=== PATIENT | female | born 1950 | race Caucasian/White ===

== ENCOUNTER 2024-04-26 14:20 | Inpatient (IN) | payer MEDICARE ==
[2024-04-26] VITALS (363 sets, daily range): BP systolic 143–146; BP diastolic 68–82; PULSE 82–85; TEMP 99.1–99.2; O2SAT 66–100
[~2024-04-26] VITALS: Ht 160 cm; Wt 138.2 kg
[~2024-04-26 14:20] MED LIST: ADIPEX-P37.5 MG PO; ASPIRIN E.C. 8181 MG PO; CIPRO500 MG PO; COLACE 100100 MG/CAP PO; COMPLETE MULTI1 TAB PO; DESENEX TP; ELIQUIS 5MG PO; ENDOCET PO; EUTHYROX75 MCG PO; FASTIN30 MG PO; FENTANYL 25 MCG TOP; FENTANYL 50MCG TOP; FLAGYL500 MG PO; GLUCOPHAGE XR500 M1 PO; K-DUR 10 MEQ T10 MEQ PO; K-TAB20 PO; KLOR-CON 1010 MEQ PO; LASIX 40MG TABL40 MG PO; LASIX 80MG TABL80 MG PO; LIPITOR 80MG80 MG PO; MULTIPLE VITAMI1 TA7 PO; NATURE'S BLE1000 MCG PO; NITROSTAT0.4 MG/TAB SL; NORCO 325 MG-51 TAB PO; NORCO 325 MG-7.1 TAB PO; OXYCONTIN 20MG20 MG PO; PERCOCET 325 MG1 TAB PO; PRADAXA 150MG150 MG PO; PRINZIDE 12.5 M1 TA1 PO; PROZAC40 MG PO; PYRIDIUM 100MG100 MG PO; PYRIDIUM200 M1 PO; SYNTHROID0.1 MG/TAB PO; TOPROL XL 50MG50 MG PO; TOPROL XL100 MG PO; TOVIAZ8 MG PO; VERAPAMIL240 MG/TAB PO; VERELAN PM200 MG PO; VERELAN240 MG PO; VITAMIN D31000 I1 PO; ZYLOPRIM 100MG100 MG PO; ZYLOPRIM 300MG300 MG PO
[2024-04-26 14:30] LABS: ARTERIAL BLD GAS O2 SATURATION 97.7 % (92-100); ARTERIAL BLD GAS TCO2 CT 30.3; ARTERIAL BLOOD GAS BASE EXCESS -1.1 (-2-2); ARTERIAL BLOOD GAS HCO3 28.1 meq/L (22-26); ARTERIAL BLOOD GAS PO2 111.5 mmHg (80-100); ARTERIAL BLOOD GAS pH 7.22 (7.35-7.45)
[2024-04-26] MEDS ORDERED: Ondansetron 4 MG/2 ML VIAL IV PRN (14:30)
[2024-04-26] MEDS ORDERED: Acetaminophen 500 MG TAB PO PRN (14:30)
[2024-04-26] MEDS ORDERED: Naloxone 0.4 MG/ML VIAL IV PRN (15:00)
[2024-04-26] MEDS ORDERED: Albuterol 0.083% Neb Soln 2.5 MG/3 ML UD IH PRN (15:00)
[2024-04-26] MEDS ORDERED: fentaNYL 100 ML IV SCH (15:00)
[2024-04-26] MEDS ORDERED: methylPREDNISolone Sod Succ 125 MG/2 ML VIAL IV ONE (15:00)
[2024-04-26] MEDS ORDERED: Rocuronium 50 MG/5 ML Multi-Dose VIAL IV ONE (15:23)
[2024-04-26] MEDS ORDERED: fentaNYL 50 MCG/ML 2 ML VIAL IV ONE (15:27)
[2024-04-26 16:18] LABS: ARTERIAL BLD GAS TCO2 CT 26.5; ARTERIAL BLOOD GAS BASE EXCESS 0.6 (-2-2); ARTERIAL BLOOD GAS HCO3 25.3 meq/L (22-26); ARTERIAL BLOOD GAS PCO2 40.7 mmHg (35-45); ARTERIAL BLOOD GAS pH 7.41 (7.35-7.45)
[2024-04-26 16:19] LABS: ARTERIAL BLOOD GAS PO2 165.2 mmHg (80-100)
[2024-04-26 16:35] LABS: BASO % 0.3 % (0.0-2.0); EOS # 0.1 K/mm3 (0.0-0.7); EOS % 0.5 % (0.0-4.0); GRAN # 8.7 K/mm3 (1.4-6.5); GRAN % 85.4 % (42.2-75.2); HEMATOCRIT 36.5 % (37.0-47.0); HEMOGLOBIN 11.2 g/dl (12.5-16.0); LYMPH # 0.8 K/mm3 (1.2-3.4); LYMPH % 7.7 % (20.0-51.0); MEAN CELL VOLUME 99 fl (80.0-100.0); MEAN CORPUSCULAR HEMOGLOBIN 30 pg (27-31); MEAN CORPUSCULAR HGB CONC 31 g/dl (33.0-37.0); MONO # 0.5 K/mm3 (0.1-0.6); MONO % 5.2 % (1.7-9.3); PLATELET COUNT 177 K/mm3 (130-400); RED BLOOD COUNT 3.68 M/mm3 (4.10-5.30); REDCELL DISTRIBUTION WIDTH-CV 15.5 % (11.5-14.5)
[2024-04-26 16:57] LABS: ALBUMIN 2.6 g/dL (3.4-4.8); BILIRUBIN,TOTAL 0.5 mg/dL (0.2-1.2); CALCIUM 8.8 mg/dL (8.4-10.2); CREATININE, serum 1.15 mg/dL (0.57-1.11); MAGNESIUM 1.7 mg/dL (1.6-2.6); POTASSIUM 4.1 mEq/L (3.5-4.5); TOTAL PROTEIN 6.2 g/dl (6.2-8.1)
--- NOTE | 2024-04-26 17:23 | NUR ---
Pt recently intubated- not doing sedation vacation
--- NOTE | 2024-04-26 17:24 | NUR ---
Pt arrived via EMS to room ICU 8 at 1414. Pt transferred to bed and attached to critical care monitors. Pt arrived on bipap and is very lethargic. Will open eyes and follow commands but quickly falls back asleep. Dr. Handley notified of arrival and pt condition. Upon arrival ABG ordered and then orders to proceed with intubation. This RN called pt son, Eder who lives in [place] for consent for central line, intubation and ART line. Updated on POC and questioned answered. Rafael Perera CRNA arrived for intubation. Pt intubated with 7.5 tube placed 23 at the lip and verified by color change at 1500. ART line placed to R radial by Rafael Perera CRNA. Pt tolerated procedure without difficulty. Pt has multiple wounds over body. Several wounds in labia area. Pt arrived with domínguez in place. Pt has several ulcers over BLE and skin tear to left forearm. Pictures taken.
[2024-04-26] MEDS ORDERED: cefTRIAXone 1 G in Water For Injection,Sterile 10 ML IV SCH (18:15)
[2024-04-26] MEDS ORDERED: Furosemide 40 MG/4 ML VIAL IV ONE (18:15)
--- NOTE | 2024-04-26 19:30 | NUR ---
Pt had multple rings on fingers. Fingers were edmatous and 9 rings were removed and placed in plastic cup and placed at bedside. One gold earring hope also removed.
[2024-04-26] MEDS ORDERED: LASIX 40MG TABL40 MG PO (19:34)
[2024-04-26] MEDS ORDERED: VERAPAMIL120 MG/TA1 PO (19:36)
[2024-04-26] MEDS ORDERED: DITROPAN XL10 MG PO (19:37)
[2024-04-26] MEDS ORDERED: K-DUR20 MEQ PO (19:43)
--- NOTE | 2024-04-26 19:59 | NUR ---
Patient intubated and sedated at time admission intake is completed. Unable to determine patient's vaccination status. Unable to complete suicide risk assessment at this time. Med rec completed using patient's transfer paperwork from [place]. Unable to verify patient's preferred pharmacy.
[2024-04-26] MEDS ORDERED: Albuterol 0.083% Neb Soln 2.5 MG/3 ML UD IH SCH (20:00)
[2024-04-26] MEDS ORDERED: methylPREDNISolone Sod Succ 125 MG/2 ML VIAL IV SCH (21:00)
[2024-04-26] MEDS ORDERED: Apixaban 5 MG TABLET PO SCH (21:00)
--- NOTE | 2024-04-26 21:07 | NUR ---
FIO2 REDUCED FROM 40% TO 30%.
--- NOTE | 2024-04-26 23:56 | NUR ---
PT LAYING IN BED ON VENT UPON ENTERING. PT RESPONDING TO PAINFUL STIMULI AND UNABLE TO ANSWER ORIENTATION QUESTIONS. RIGHT IJ AND LEFT AC INT IN PLACE. RIGHT RADIAL ART LINE ZEROED, SUTURED WITH DRIED BLOOD NOTED TO DRESSING. NO PATENT. LEFT FOREARM SKIN TEAR, MEPILEX IN PLACE. BUE ECCYMOSIS NOTED. 2 ULCERS TO LLE SAHARA AND 2 SCABS NOTED BELOW LEFT KNEE. BLE FLAKY SKIN. RLE SCATTERED SCABS. SACRUM REDDENED, SKIN BLANCHABLE AND INTACT. BED IN LOWEST POSITION, CALL LIGHT IN REACH, BED ALARM ON.
[2024-04-27] VITALS (759 sets, daily range): BP systolic 82–145; BP diastolic 44–71; PULSE 57–98; TEMP 97.2–98.1; O2SAT 54–100
[2024-04-27 05:14] LABS: ARTERIAL BLD GAS O2 SATURATION 97.5 % (92-100); ARTERIAL BLD GAS TCO2 CT 21.7; ARTERIAL BLOOD GAS BASE EXCESS -2.2 (-2-2); ARTERIAL BLOOD GAS HCO3 20.8 meq/L (22-26); ARTERIAL BLOOD GAS PCO2 29.7 mmHg (35-45); ARTERIAL BLOOD GAS PO2 95.5 mmHg (80-100); ARTERIAL BLOOD GAS pH 7.46 (7.35-7.45)
--- NOTE | 2024-04-27 05:35 | NUR ---
SEDATION VACATION NOT APPROPRIATE AT THIS TIME, PT ON VENT LESS THAN 24 HOURS.
[2024-04-27 05:45] LABS: HEMOGLOBIN 10.9 g/dl (12.5-16.0); MEAN CELL VOLUME 96 fl (80.0-100.0); MEAN CORPUSCULAR HEMOGLOBIN 30 pg (27-31); MEAN CORPUSCULAR HGB CONC 31 g/dl (33.0-37.0); MEAN PLATELET VOLUME 10.4 fl (7.4-10.4); PLATELET COUNT 171 K/mm3 (130-400); RED BLOOD COUNT 3.61 M/mm3 (4.10-5.30); REDCELL DISTRIBUTION WIDTH-CV 15.2 % (11.5-14.5)
[2024-04-27 05:49] LABS: HEMATOCRIT 34.8 % (37.0-47.0)
[2024-04-27 06:04] LABS: CALCIUM 8.7 mg/dL (8.4-10.2); CREATININE, serum 1.18 mg/dL (0.57-1.11); POTASSIUM 3.3 mEq/L (3.5-4.5)
[2024-04-27 07:15] LABS: BAND 1 % (0-10); LYMPHOCYTE 3 % (20.0-51.0); NEUTROPHILS 96 % (42.0-75.2); PLATELET ESTIMATE NORMAL (NORMAL)
--- NOTE | 2024-04-27 10:02 | NUR ---
market research worker notes pt is intubated at this time. ASH received a note pt has [facility]. ASH spoke with Tereso at [facility] who reports they have had pt in the past, and she is scheduled to re-start, but she was taken to the ER. Tereso does not have a DPOA-HC. ASH spoke with pt's PCP office [facility] Kenny who reports pt sees Dr. Church. She located a DPOA-HC on file and faxed this to ASH. ASH obtained this listing Donna Gokul [phone] and Sirisha Bejarano ([facility]) [phone] as agents. ASH spoke with RN Lizeth who was informed on DPOA-HC not being pt's children as shown/listed on file. She reports Donna Mckeon is a express unit nurse and ASH corroborated this from a previous ASH note. ASH spoke with Donna Mckeon in person, in the hospital. She reports not having assisted with pt's care in many years. ASH and Donna spoke with ICU Director Radha and confirmed this was allowed. ASH provided copy of DPOA-HC to Radha. Donna confirmed pt lives alone in [place]. She sees Dr. Church for PCP needs and obtains medications from [facility] with no difficulties. Pt is believed to have Medicare Advantage [facility] plan. Donna reports pt needs assistance with ADLS and uses a FWW, wheelchair, bedside commode for DME. Donna reports pt does not often have assistance with her cares and typically sits in her chair and then transfers to the commode as her daily activity. Donna reports pt has a step-daughter, Maikel, son, Michel Hull [phone] or [phone], son Eder in [place] [phone]. Michel Carranzan is estranged from mother and Maikel does check on pt regularly. Jordan was contacted for consents prior to obtaining/locating a DPOA-HC. ASH discussed discharge proccess and steps to anticipate while pt is intubated and not able to make her own decisions. DPOA-HC placed in chart. Discharge Plan: intubated
[2024-04-27] MEDS ORDERED: Glucagon 1 MG VIAL IM PRN (10:30)
[2024-04-27] MEDS ORDERED: Dextrose (Glucose) 15 GM (4 x 3.75 GM) Chewable TABLET PACK PO PRN (10:30)
[2024-04-27] MEDS ORDERED: Dextrose 50% Water 25 GM/50 ML SYRINGE IV PRN (10:30)
--- NOTE | 2024-04-27 10:44 | NUR ---
PT IS IN THE BED ON A VENTILATOR. SHE DOES OPEN HER EYES WHEN HER NAME IS CALLED. SHE HAS A NO CATHETER IN PLACE. SHE HAS ON OG TO LIS. SHE HAS A CENTRAL LINE WITH FENTANYL AND PROPOFOL INFUSING. SHE ALSO HAS A RIGHT RADIAL ARTERIAL LINE.
[2024-04-27] MEDS ORDERED: Potassium Chloride 100 ML IV SCH ×2 (11:15→22:45)
[2024-04-27] MEDS ORDERED: *Potassium Replacement Protocol MC SCH (11:15)
--- NOTE | 2024-04-27 11:25 | NUR ---
SW was called by ASH Kenny who spoke to Dr. Church. They report pt has "Refused to come into the office." They are unsure if it is related to transportation concerns or something else. They last saw pt for her annual exam 01/2024 and feel as though many of her concerns could have been prevented. They would like assistance with pt getting established with a PCP in [place] as this is more accessible to her.
[2024-04-27] MEDS ORDERED: Insulin Lispro (HumaLOG) SQ SCH (12:00)
[2024-04-27 15:58] LABS: COLLECTION METHOD CLEAN CATCH
[2024-04-27 16:06] LABS: URINE APPEARANCE CLEAR (CLEAR/HAZY); URINE BLOOD NEGATIVE (NEGATIVE); URINE COLOR YELLOW (YELLOW); URINE GLUCOSE NEGATIVE (NEGATIVE); URINE KETONE TRACE (NEGATIVE); URINE NITRATE NEGATIVE (NEGATIVE); URINE PROTEIN(semi-quant) TRACE (NEGATIVE)
[2024-04-27] MEDS ORDERED: LR 500 ML IV ONE (16:30)
--- NOTE | 2024-04-27 21:00 | NUR ---
PT LAYING IN BED ON VENT UPON ENTERING. PT OPENING EYES TO VOICE AND UNABLE TO FOLLOW COMMANDS AT THIS TIME. NO PATENT. TUBE FEEDING AT 15 MLS/HR. RIGHT RADIAL ART LINE IN PLACE, DRIED DRAINAGE NOTED TO DRESSING. LEFT ARM SKIN TEAR, MEPILEX IN PLACE. BUE ECCHYMOSIS. 2 ULCERS TO LLE SAHARA, 2 ABRASIONS ON LEFT KNEE. BLE SCALING SKIN AND REDNESS. SCATTERED SCABS TO RLE. SACRUM REDDENED, INTACT AND BLACHABLE. SCATTERED ULCERS ON LABIA NOTED. PT HAS NO OBVIOUS NEEDS AT THIS TIME AND CALMLY RESTING IN BED. BED IN LOWEST POSITION, CALL LIGHT IN REACH, BED ALARM ON.
[2024-04-28] VITALS (351 sets, daily range): BP systolic 104–137; BP diastolic 51–67; PULSE 71–113; TEMP 97.3–99.4; O2SAT 87–100
[2024-04-28 05:32] LABS: BASO % 0.3 % (0.0-2.0); EOS # 0.1 K/mm3 (0.0-0.7); EOS % 1.1 % (0.0-4.0); GRAN # 5.9 K/mm3 (1.4-6.5); GRAN % 79.5 % (42.2-75.2); HEMOGLOBIN 10.2 g/dl (12.5-16.0); LYMPH # 0.9 K/mm3 (1.2-3.4); LYMPH % 12.4 % (20.0-51.0); MEAN CELL VOLUME 95 fl (80.0-100.0); MEAN CORPUSCULAR HEMOGLOBIN 30 pg (27-31); MEAN CORPUSCULAR HGB CONC 32 g/dl (33.0-37.0); MEAN PLATELET VOLUME 10.1 fl (7.4-10.4); MONO # 0.5 K/mm3 (0.1-0.6); MONO % 6.3 % (1.7-9.3); PLATELET COUNT 167 K/mm3 (130-400); RED BLOOD COUNT 3.38 M/mm3 (4.10-5.30); REDCELL DISTRIBUTION WIDTH-CV 15.7 % (11.5-14.5)
[2024-04-28 05:35] LABS: HEMATOCRIT 32.1 % (37.0-47.0)
[2024-04-28 05:46] LABS: CALCIUM 8.3 mg/dL (8.4-10.2); CREATININE, serum 1.33 mg/dL (0.57-1.11); MAGNESIUM 1.5 mg/dL (1.6-2.6); POTASSIUM 3.8 mEq/L (3.5-4.5)
--- NOTE | 2024-04-28 07:44 | NUR ---
SEDATION VACATION ATTEMPTED AFTER 0500, SEE DRIP TITRATIONS
--- NOTE | 2024-04-28 09:47 | NUR ---
research worker kitchen attended clinical rounding and pt remains intubated and medications have been off for few hours to rouse her. SW notes PT reccomends SNF, once able to be extubated and discuss this. Discharge Plan: SNF
[2024-04-28] MEDS ORDERED: Magnesium Sulfate 8% 50 ML IV ONE (10:30)
[2024-04-28] MEDS ORDERED: Metoprolol Tartrate 5 MG/5 ML VIAL IV ONE (11:15)
--- NOTE | 2024-04-28 15:25 | NUR ---
PT IS RESTING IN THE BED ON THE VENTILATOR. HER SEDATION HAS BEEN DECREASED FOR A SEDATION AND VENT WEANING TRIAL. SHE DOES OPEN HER EYES TO VOICE, BUT DOES NOT KEEP THEM OPEN. HER TUBE FEEDING HAS BEEN STOPPED FOR THE TRIAL. SHE HAS ON OG TUBE. SHE HAS A NO CATHETER. SHE HAS AN IJ WITH FENTANYL AND PROPOFOL INFUSING.
--- NOTE | 2024-04-28 19:48 | NUR ---
PT PROPOFOL WAS STOPPED AT 0710 AND FENTANYL STOPPED AT 0720 FOR A SEDATION VACATION AND A VENT WEANING TRIAL.
--- NOTE | 2024-04-28 20:00 | NUR ---
PT RESTING IN BED ON VENT UPON ENTERING. PT ALERT TO VOICE AND ABLE TO FOLLOW THIS NURSE WITH HER EYES. UNABLE TO SQUEEZE THIS NURSES HAND BUT ABLE TO WIGGLING TOES WHEN ASKED. PT ABLE TO ANSWER YES OR NO QUESTIONS WITH A HEAD NOD/SHAKE. PT DENIES PAIN AT THIS TIME. TUBE FEEDING IN PROGESS. NO PATENT. LEFT ARM SKIN TEAR NOTED, MEPILEX IN PLACE. BUE ECCHYMOSIS. 2 ULCERS ODD JOB WORKER TO LLE. 2 ABRASIONS ON LEFT KNEE. BLE SKIN FLAKING AND DRY. SCATTERED SCABS NOTED TO RLE. SACRUM REDDENED WITH EXORIATION NOTED, AREA DRIED ADN CLEANED. MULTIPLE VAGINAL ULCERS NOTED. REDNESS AND EXCORIATION NOTED UNDER BREASTS. BANDAID TO RIGHT WRIST FROM D/C'D ART LINE. PT DENIES NEEDS AT THIS TIME. BED IN LOWEST POSITION, CALL LIGHT IN REACH, BED ALARM ON
[2024-04-29] VITALS (243 sets, daily range): BP systolic 110–138; BP diastolic 68–92; PULSE 12–112; TEMP 98.6–99.5; O2SAT 63–100
[2024-04-29 05:12] LABS: ARTERIAL BLD GAS O2 SATURATION 97.3 % (92-100); ARTERIAL BLD GAS TCO2 CT 24.9; ARTERIAL BLOOD GAS BASE EXCESS 1.6 (-2-2); ARTERIAL BLOOD GAS PCO2 29.7 mmHg (35-45); ARTERIAL BLOOD GAS PO2 93.5 mmHg (80-100); ARTERIAL BLOOD GAS pH 7.53 (7.35-7.45)
[2024-04-29 06:00] LABS: BASO % 0.2 % (0.0-2.0); EOS # 0.2 K/mm3 (0.0-0.7); EOS % 2.5 % (0.0-4.0); GRAN # 4.4 K/mm3 (1.4-6.5); GRAN % 74.5 % (42.2-75.2); LYMPH # 0.9 K/mm3 (1.2-3.4); LYMPH % 15.4 % (20.0-51.0); MEAN CELL VOLUME 95 fl (80.0-100.0); MEAN CORPUSCULAR HGB CONC 32 g/dl (33.0-37.0); MEAN PLATELET VOLUME 10.6 fl (7.4-10.4); MONO # 0.4 K/mm3 (0.1-0.6); MONO % 7.1 % (1.7-9.3); PLATELET COUNT 155 K/mm3 (130-400); RED BLOOD COUNT 3.21 M/mm3 (4.10-5.30); REDCELL DISTRIBUTION WIDTH-CV 15.9 % (11.5-14.5)
[2024-04-29 06:13] LABS: CALCIUM 8.1 mg/dL (8.4-10.2); CREATININE, serum 1.16 mg/dL (0.57-1.11); MAGNESIUM 2.3 mg/dL (1.6-2.6); POTASSIUM 3.5 mEq/L (3.5-4.5)
[2024-04-29 06:15] LABS: HEMATOCRIT 30.4 % (37.0-47.0); HEMOGLOBIN 9.8 g/dl (12.5-16.0); MEAN CORPUSCULAR HEMOGLOBIN 31 pg (27-31)
--- NOTE | 2024-04-29 06:53 | NUR ---
FENTANYL RUNNING, NO CHANGE DURING SHIFT. PT ALERT WITH SPONTANEOUS EYE MOVEMENT AND ABLE TO FOLLOW LIMITED COMMANDS
--- NOTE | 2024-04-29 07:45 | NUR ---
rt TRIED TWICE TO CPAP PATIENT. BOTH TIMES PATIENT WENT INTO APNEA VENTILATION. RT TRIED TO RADIO COMMUNICATIONS MECHANICIAN PATIENT TO BREAT BUT PATIENT ONLY MADE ONE EFFORT TO TAKE A BREATH. RT KEPT PATIENT ON CURRENT VENT SETTINGS AND LET RN KNOW TO CALL IF PULMONOLGIST WANTS TO ATTEMPT ANOTHER CPAP TRIAL
--- NOTE | 2024-04-29 09:55 | NUR ---
Initial visit: Lizeth has ten ventilated for quite awhile and Ventilating Expert finally caught her awake. Ventilating Expert went in and asked if she would like Spiritual Care in the form of prayer and/or for Ventilating Expert to keep her in her prayers. She let Ventilating Expert know shw definitely wanted prayer. Ventilating Expert prayed a prayer for God's blessings and for healing Lizeth. Ventilating Expert will continue to check on Lizeth.
[2024-04-29] MEDS ORDERED: fentaNYL 50 MCG/ML 2 ML VIAL IV PRN (10:45)
[2024-04-29] MEDS ORDERED: LORazepam 2 MG/ML 1 ML VIAL IV PRN (10:45)
--- NOTE | 2024-04-29 10:45 | NUR ---
PER DR. VELAZQUEZ PER XRAY PATIENTS ETT TUBE NEEDED TO BE PULLED OUT 1 CM. RT NOTICED THAT ETT WAS 24 AT LIP WHEN IT WAS SUPPOSED TO BE 23. RT TOOK ETT TUBE OUT 1 CM. PATIENT TOLERATED IT. RT SUCTION PRE AND POST ANY SECREATIONS ABOVE CUFF. ALSO DR. VELAZQUEZ STATED TO TURN RATE DOWN TO 14 FROM 18.
--- NOTE | 2024-04-29 10:52 | NUR ---
Patient is laying in bed, slightly restless, no sedation on board. She is able to follow commands, squeeze fingers, lift head, answer questions without difficulties. She did fail X3 weaning trails this morning. No spontaneous breathing while on CPAP, even with pressure support of 10, she is unable to breath on her own. We tried multiple approaches, and was still unsuccessful in spontaneous breathing. Will continue to try to wean throughout the weekend. ETT/OG in place, RIJ intact/infusing without complications, domínguez draining dark caleb urine.
[2024-04-29] MEDS ORDERED: FLUoxetine 20 MG CAP PO SCH (11:00)
[2024-04-29] MEDS ORDERED: Sennosides/Docusate 8.6-50 MG TAB PO SCH (11:00)
[2024-04-29] MEDS ORDERED: Potassium Chloride 100 ML IV SCH (12:15)
--- NOTE | 2024-04-29 13:53 | NUR ---
D: Ticker Maintainer was called up to room for prayer A: Pt was resting with family in the room. Ticker Maintainer prayed with pt and offered comfort. P: Ticker Maintainer informed family that if they needed anything else from the railroad car letterer area to let their nurse know. Ticker Maintainer will follow up as needed.
[2024-04-30] VITALS (690 sets, daily range): BP systolic 112–136; BP diastolic 32–87; PULSE 66–92; TEMP 97–99.4; O2SAT 78–100
[2024-04-30 04:44] LABS: BASO % 0.3 % (0.0-2.0); EOS # 0.2 K/mm3 (0.0-0.7); EOS % 2.8 % (0.0-4.0); GRAN # 4.4 K/mm3 (1.4-6.5); GRAN % 71.9 % (42.2-75.2); HEMOGLOBIN 10.3 g/dl (12.5-16.0); MEAN CELL VOLUME 96 fl (80.0-100.0); MEAN CORPUSCULAR HEMOGLOBIN 31 pg (27-31); MEAN CORPUSCULAR HGB CONC 32 g/dl (33.0-37.0); MEAN PLATELET VOLUME 10.5 fl (7.4-10.4); MONO # 0.4 K/mm3 (0.1-0.6); MONO % 7.2 % (1.7-9.3); PLATELET COUNT 152 K/mm3 (130-400); RED BLOOD COUNT 3.38 M/mm3 (4.10-5.30)
[2024-04-30 04:49] LABS: HEMATOCRIT 32.6 % (37.0-47.0)
[2024-04-30 05:15] LABS: CALCIUM 8.4 mg/dL (8.4-10.2); CREATININE, serum 1.15 mg/dL (0.57-1.11); MAGNESIUM 2.3 mg/dL (1.6-2.6)
[2024-04-30 06:50] LABS: ARTERIAL BLOOD GAS PCO2 38.5 mmHg (35-45); ARTERIAL BLOOD GAS pH 7.43 (7.35-7.45)
[2024-04-30 06:51] LABS: ARTERIAL BLD GAS O2 SATURATION 97.7 % (92-100); ARTERIAL BLOOD GAS BASE EXCESS 0.6 (-2-2); ARTERIAL BLOOD GAS HCO3 24.9 meq/L (22-26); ARTERIAL BLOOD GAS PO2 100.9 mmHg (80-100)
--- NOTE | 2024-04-30 08:15 | NUR ---
Patient resting with eyes closed, ventilated, on no sedation. Has fentanyl and ativan pushes if needed. VSS, afebrile. No complaints at this time. Intradry in place in folds of the skin. Tube feeds paused for potential weaning trail.
--- NOTE | 2024-04-30 12:49 | NUR ---
Data: Patient accepted spiritual care visit offered during Refrigeration Engineer rounds. Patient is intubated. Assessment: Patient desired prayer. Plan of Care: Refrigeration Engineer asked yes/no questions to determine Patient's needs/desires. Refrigeration Engineer read from the Psalms and prayed for Patient. Patient fell in and out of sleep. Patient smiled at Refrigeration Engineer throughout visit. Chaplains will remain available as needed/requested while Patient is admitted to this hospital.
--- NOTE | 2024-04-30 14:40 | NUR ---
PT SELF EXTUBATED WHILE RN AND RT WERE ACROSS THE OVIEDO WITH ANOTHER PT. PLACED ON 3 LPM NC INITIALLY BUT SWITCHED TO OXYMASK AT TO LPM WHILE RT SET UP BIPAP PER . PT PLACED ON BIPAP W/O INCIDENT AND SEEMED COMFORTABLE.
--- NOTE | 2024-04-30 14:47 | NUR ---
Patient extubated herself at 1440. Per Dr. Deleon, place her on Bipap and get an ABG at 1730. If any problems arise, she may need to be reintubated. Called hospitalist for update as well. Oxygen reading mid 90's with intermittent good pleath. Blood pressure and heart rate stable. Currently on 15 liters oxymask until bipap gets bedside.
--- NOTE | 2024-04-30 17:23 | NUR ---
Patient was very anxious about the mask from the bipap and she received Ativan to help her rest. She has been trying to talk and has been restless. Since the ativan was given she has fallen asleep and her oxygen has remained in +90% range. Her family was asked to leave so that she can get some rest for the evening. Will continue to update them on changes.
--- NOTE | 2024-04-30 20:00 | NUR ---
UPON SHIFT ASSESSMENT,PATIENT WAS ASLEEP IN BED WITH BIPAP IN PLACE SET AT 36% FiO2. VS ARE WNL. RT IJ FLUSHES WITH GOOD BLOOD RETURN. PATIENT DENIES PAIN AND IS ABLE TO OBEY VERBAL COMMANDS. VOICE IS DIMINISHED. BEDSIDE SWALLOW EVAL PERFORMED-HOB RAISED TO 90 DEGREES , BIPAP REPLACED WITH OXYMASK AT 6L. PATIENT TOLERATED ICE CHIPS WELL, HOWEVER, SWALLOWING WAS SLOW. WITH WATER, PATIENT EXHIBITED SIGNS OF HESITATION AND LOOKED UNCERTAIN ON WHAT MUSCLES TO USE-THIN LIQUIDS WOULD BE A CONCERN. PATIENT TOLERATED PUDDING WELL. O2 SAT REMAINED 93%. PATIENT PLEASANT.
--- NOTE | 2024-04-30 22:56 | NUR ---
PATIENT HAD LARGE LIQUID STOOL. REQUIRED ASSISTANCE OF 3 FOR LINEN CHANGE. NO AND PERICARE PREFORMED. PATIENT WAS NOTED TO HAVE HERNANDEZ WITH MOVEMENT. RECOVERED O2 SATS TO 94% ON BIPAP.
[2024-05-01] VITALS (1156 sets, daily range): BP systolic 104–147; BP diastolic 57–91; PULSE 64–82; TEMP 97.2–98.9; O2SAT 62–100
--- NOTE | 2024-05-01 02:48 | NUR ---
CALL PLACED TO RT. PATIENT BIPAP NOT SEALING AND 02 SENSOR MALFUNCTION. 02:49 RT ARRIVED BEDSIDE REPLACED 02 SENSOR AND RE-ADJUSTED MASK.
[2024-05-01 04:44] LABS: BASO % 0.5 % (0.0-2.0); EOS # 0.4 K/mm3 (0.0-0.7); EOS % 5.5 % (0.0-4.0); GRAN # 4.7 K/mm3 (1.4-6.5); HEMOGLOBIN 10.5 g/dl (12.5-16.0); LYMPH # 0.9 K/mm3 (1.2-3.4); LYMPH % 14.5 % (20.0-51.0); MEAN CELL VOLUME 100 fl (80.0-100.0); MEAN CORPUSCULAR HEMOGLOBIN 30 pg (27-31); MEAN CORPUSCULAR HGB CONC 30 g/dl (33.0-37.0); MEAN PLATELET VOLUME 10.3 fl (7.4-10.4); MONO # 0.5 K/mm3 (0.1-0.6); MONO % 6.9 % (1.7-9.3); PLATELET COUNT 151 K/mm3 (130-400); RED BLOOD COUNT 3.46 M/mm3 (4.10-5.30)
[2024-05-01 04:48] LABS: HEMATOCRIT 34.5 % (37.0-47.0)
[2024-05-01 04:48] LABS: ARTERIAL BLD GAS O2 SATURATION 96.9 % (92-100); ARTERIAL BLD GAS TCO2 CT 27.6; ARTERIAL BLOOD GAS BASE EXCESS -1.4 (-2-2); ARTERIAL BLOOD GAS HCO3 25.9 meq/L (22-26); ARTERIAL BLOOD GAS PCO2 55.6 mmHg (35-45); ARTERIAL BLOOD GAS PO2 102.3 mmHg (80-100); ARTERIAL BLOOD GAS pH 7.29 (7.35-7.45)
[2024-05-01 05:02] LABS: CALCIUM 8.7 mg/dL (8.4-10.2); CREATININE, serum 0.86 mg/dL (0.57-1.11); MAGNESIUM 2.3 mg/dL (1.6-2.6)
--- NOTE | 2024-05-01 07:50 | NUR ---
Patient is laying in bed with bipap on, stating her face is uncomfortable and the bridge of her nose and eyes are irritated. We may try to do a NC for a short period of time to see if she is able to maintain her oxygen levels. At this time, SHMUEL.
[2024-05-01] MEDS ORDERED: dexAMETHasone 10 MG/ML VIAL IV SCH (11:45)
[2024-05-01] MEDS ORDERED: Furosemide 40 MG/4 ML VIAL IV ONE (11:45)
[2024-05-01 16:24] LABS: ARTERIAL BLD GAS O2 SATURATION 98.6 % (92-100); ARTERIAL BLD GAS TCO2 CT 24.1; ARTERIAL BLOOD GAS BASE EXCESS -1.7 (-2-2); ARTERIAL BLOOD GAS HCO3 22.9 meq/L (22-26); ARTERIAL BLOOD GAS PCO2 38.5 mmHg (35-45); ARTERIAL BLOOD GAS pH 7.39 (7.35-7.45)
--- NOTE | 2024-05-01 17:18 | NUR ---
Woke up from a long nap, got ABG. Numbers look better than expected. Diet ordered, starting with a small/diet order first to evaluate swallow. Currently she is on 5-6 liters of oxygen via HF, and is tolerating well. Will follow up with ABG tonight.
--- NOTE | 2024-05-01 17:30 | NUR ---
PT ON OXYMASK POST ABG @ 1610, CHANGED TO C 5-6 LPM 2 [id number]
[2024-05-01] MEDS ORDERED: Formoterol Neb Soln 20 MCG/2 ML UD IH SCH (19:00)
[2024-05-01] MEDS ORDERED: Budesonide Neb Susp 0.5 MG/2 ML AMP IH SCH (19:00)
--- NOTE | 2024-05-01 19:15 | NUR ---
PT SITTING UP IN BED WITH VISITOR AT BEDSIDE. PT CONFUSED AT THIS TIME IN CONVERSATION WITH VISITOR. ORIENTED TO SELF ONLY AT THIS TIME. ABLE TO FOLLOW COMMANDS, COOPERATIVE. PLACED PT BACK ON BIPAP AT THIS TIME WITH RT. TOLERATING WELL. L A/C PIV REMOVED OUT OF DATE. CENTRAL LINE DRSG CHANGED TO RIJ WITH STERILE TECHNIQUE.
[2024-05-01 21:30] LABS: ARTERIAL BLD GAS O2 SATURATION 98.5 % (92-100); ARTERIAL BLOOD GAS BASE EXCESS 0.6 (-2-2); ARTERIAL BLOOD GAS HCO3 26.5 meq/L (22-26); ARTERIAL BLOOD GAS PCO2 47.9 mmHg (35-45); ARTERIAL BLOOD GAS pH 7.36 (7.35-7.45)
[2024-05-01 21:31] LABS: ARTERIAL BLOOD GAS PO2 131.6 mmHg (80-100)
[2024-05-02] VITALS (680 sets, daily range): BP systolic 91–140; BP diastolic 54–84; PULSE 71–94; TEMP 97.8–98.8; O2SAT 64–100
[2024-05-02] MEDS ORDERED: Insulin Lispro (HumaLOG) SQ SCH
[2024-05-02 05:49] LABS: ALBUMIN 2.3 g/dL (3.4-4.8); BILIRUBIN,TOTAL 0.5 mg/dL (0.2-1.2); CALCIUM 8.5 mg/dL (8.4-10.2); CREATININE, serum 1.08 mg/dL (0.57-1.11); MAGNESIUM 2.2 mg/dL (1.6-2.6); PHOSPHOROUS 3.5 mg/dL (2.3-4.7); POTASSIUM 3.9 mEq/L (3.5-4.5); TOTAL PROTEIN 5.5 g/dl (6.2-8.1)
--- NOTE | 2024-05-02 07:03 | NUR ---
PT WORE BIPAP THROUGHOUT THIS PM SHIFT, TOLERATED WELL THROUGH SLEEP. BIPAP TAKEN OFF AT 0630 AND PLACED ON 5L HIGH FLOW NASAL CANNULA. PT REMAINS ORIENTED TO SELF ONLY. IS COOPERATIVE AND FOLLOWS COMMANDS. STATES NO COMPLAINTS. PT HAD LARGE, LOOSE BOWEL MOVEMENT THIS AM. CLEANED AND LINENS CHANGED, MEPELEX TO COCCYX REPLACED.
[2024-05-02] MEDS ORDERED: Potassium Chloride 100 ML IV ONE (08:00)
[2024-05-02 09:28] LABS: ARTERIAL BLD GAS O2 SATURATION 96.5 % (92-100); ARTERIAL BLD GAS TCO2 CT 30.7; ARTERIAL BLOOD GAS BASE EXCESS 2.2 (-2-2); ARTERIAL BLOOD GAS PCO2 55.7 mmHg (35-45); ARTERIAL BLOOD GAS PO2 92.7 mmHg (80-100); ARTERIAL BLOOD GAS pH 7.33 (7.35-7.45)
--- NOTE | 2024-05-02 10:59 | NUR ---
Photographic Printer attended clinical rounds with the team. Per Hospitalist, patient may need to be re-intubated. Patient is confused this morning. SW met with patient's son, Eder at bedside to introduce herself. Eder is here from [place] and plans to be here until Thursday pending any further decline.
--- NOTE | 2024-05-02 16:22 | NUR ---
This RN called Dr. Handley due to patient continuing to hallucinate and pull at lines/Bipap mask. New order received for ABG; RT aware. Will let Dr. Handley know when ABG is resulted.
[2024-05-02 16:39] LABS: ARTERIAL BLD GAS O2 SATURATION 97.4 % (92-100); ARTERIAL BLD GAS TCO2 CT 30.1; ARTERIAL BLOOD GAS BASE EXCESS 3.2 (-2-2); ARTERIAL BLOOD GAS HCO3 28.7 meq/L (22-26); ARTERIAL BLOOD GAS PCO2 47.8 mmHg (35-45)
--- NOTE | 2024-05-02 16:44 | NUR ---
REPORT RECIEVED FROM ROD POTTER. REVIEWED OVERNIGHT EVENTS. POTASSIUM PROTOCOL INITIATED. PATIENT CURRENTLY ON 5L O2 VIA NC, WITH BIPAP AT 30% FIO2 READILY AVAILABLE. PATIENT HAS SHOWN INCREASED CONFUSION. PATIENT HAS PATENT RIJ. NO IN PLACE. PATIENT IS RESTING WITH EYES CLOSED AND CALL LIGHT IS WITHIN REACH, ALL VITAL SIGNS STABLE.
[2024-05-02] MEDS ORDERED: QUEtiapine 25 MG TAB PO ONE (16:45)
[2024-05-02 17:45] LABS: COLLECTION METHOD CATHETER
[2024-05-02 18:42] LABS: URINE APPEARANCE CLOUDY (CLEAR/HAZY); URINE BLOOD 3+ (NEGATIVE); URINE COLOR YELLOW (YELLOW); URINE GLUCOSE NEGATIVE (NEGATIVE); URINE KETONE TRACE (NEGATIVE); URINE NITRATE NEGATIVE (NEGATIVE); URINE PROTEIN(semi-quant) 1+ (NEGATIVE)
[2024-05-02 18:44] LABS: AMORPHOUS CRYSTAL PRESENT (NOT PRESENT); SQUAMOUS EPITHELIAL 0-2 /hpf (0-10); URINE RBC >50 /hpf (0-2)
[2024-05-02 18:45] LABS: URINE BACTERIA MODERATE /hpf (NONE SEEN)
--- NOTE | 2024-05-02 19:30 | NUR ---
RECEIVED REPORT FROM MARY. PATIENT RESTING QUIETLY IN BED. CONTINUES TO RECEIVE 3L OXYGEN VIA NASAL CANNULA, TOLERATING WELL. VITALS WITHIN NORMAL LIMITS. PATIENT SLEEPING COMFORTABLY; NO OBVIOUS SIGNS OF PAIN OR DISCOMFORT.
--- NOTE | 2024-05-02 23:01 | NUR ---
PATIENT'S NO TUBING AND DRAINAGE BAG EXCHANGED BY THIS RN. PREVIOUS TUBING WAS DISCOLORED AND CLOUDED WITH SEDIMENT.
[2024-05-03] VITALS (511 sets, daily range): BP systolic 95–128; BP diastolic 60–83; PULSE 66–86; TEMP 97.6–98.3; O2SAT 78–100
[2024-05-03] MEDS ORDERED: LR 500 ML IV ONE (01:45)
[2024-05-03] MEDS ORDERED: LR 1,000 ML IV SCH (01:45)
[2024-05-03 05:24] LABS: BASO % 0.3 % (0.0-2.0); EOS # 0.2 K/mm3 (0.0-0.7); EOS % 3.7 % (0.0-4.0); GRAN # 4.5 K/mm3 (1.4-6.5); GRAN % 72.2 % (42.2-75.2); HEMOGLOBIN 10.2 g/dl (12.5-16.0); MEAN CELL VOLUME 102 fl (80.0-100.0); MEAN CORPUSCULAR HEMOGLOBIN 30 pg (27-31); MEAN CORPUSCULAR HGB CONC 30 g/dl (33.0-37.0); MONO # 0.5 K/mm3 (0.1-0.6); MONO % 7.2 % (1.7-9.3); PLATELET COUNT 145 K/mm3 (130-400); RED BLOOD COUNT 3.35 M/mm3 (4.10-5.30); REDCELL DISTRIBUTION WIDTH-CV 15.9 % (11.5-14.5)
[2024-05-03 05:27] LABS: HEMATOCRIT 34.3 % (37.0-47.0)
[2024-05-03 05:47] LABS: CALCIUM 8.3 mg/dL (8.4-10.2); CREATININE, serum 1.01 mg/dL (0.57-1.11); POTASSIUM 3.5 mEq/L (3.5-4.5)
[2024-05-03] MEDS ORDERED: Potassium Chloride 100 ML IV SCH (06:00)
--- NOTE | 2024-05-03 14:11 | NUR ---
PT IS RESTING IN THE BED. SHE STILL HAS SOME CONFUSION. SHE IS ON 3L NC. SHE HAS A NO CATHETER IN PLACE. SHE HAS A RIGHT IJ WITH FLUIDS INFUSING. SHE WAS TURNED FOR A SKIN CHECK AND SHE HAD A BOWEL MOVEMENT.
--- NOTE | 2024-05-03 16:20 | NUR ---
Machine Molder attended clinical rounds with the team and recommendation is for a referral to [facility]. Patient and son, Eder are in agreement. ASH contacted Jeremy at [facility] and faxed referral. Patient appears to meet criteria so Jeremy has submitted for authorization.
--- NOTE | 2024-05-03 19:00 | NUR ---
THIS NURSE RECIEVED REPORT FROM ROD SCALES. PATIENT IS SEEN SLEEPING IN BED. PATIENT IS RECIEVING OXYGEN THROUGH A NASAL CANNULA AT 2L. PATIENT HAS A RIGHT IJ LINE WHERE IV FLUIDS ARE RUNNING AT 75 MLS AN HOUR. PATIENT'S VITAL SIGNS ARE WNL. BED IS IN LOW POSITION, BED ALARMS ARE ON, WHEELS ARE LOCKED, AND CALL LIGHT IS WITHIN THE PATIENT'S REACH.
[2024-05-04] VITALS (458 sets, daily range): BP systolic 112–156; BP diastolic 64–99; PULSE 66–86; TEMP 97.5–98.7; O2SAT 89–100
--- NOTE | 2024-05-04 07:00 | NUR ---
REPORT RECIEVED FROM ROD BOOKER. REVIEWED OVERNIGHT EVENTS. PATENT RIJ RUNNING LR. PATENT NO. PATIENT ON 1L O2 VIA NC. BIPAP ON STANDBY. POTASSIUM PROTOCOL INITIATED. PATIENT RESTING WITH EYES CLOSED AND CALL LIGHT WITHIN REACH. PATIENT HAD MINIMUM URINE OUTPUT OVERNIGHT, WILL MAKE HOSPITALIST AWARE.
[2024-05-04 08:47] LABS: CALCIUM 8.4 mg/dL (8.4-10.2); CREATININE, serum 0.96 mg/dL (0.57-1.11)
[2024-05-04] MEDS ORDERED: QUEtiapine 25 MG TAB PO ONE (10:00)
[2024-05-04] MEDS ORDERED: LR 500 ML IV ONE (10:00)
[2024-05-04] MEDS ORDERED: 1/2 NS 1,000 ML IV SCH (10:00)
[2024-05-04] MEDS ORDERED: Miconazole 2% Topical Powder BOTTLE TP PRN (10:00)
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
--- NOTE | 2024-05-04 15:16 | NUR ---
Workers Compensation Administrator was contacted by Jeremy at [facility] who advised insurance has asked for a peer to peer. SW provided peer to peer information to Hospitalist. ASH also contacted patient's son, Jordan with an update.
--- NOTE | 2024-05-04 17:46 | NUR ---
Patient arrived to the medical unit, room 351. Alert and oriented to self. Difficulty to speak. Getting 2L HF NC. Bariatric bed. Telemetry in place. NR running at 50 mls/hr on white port of [facility].
--- NOTE | 2024-05-04 18:36 | NUR ---
Patient resting in bed, she asked for a warm blanked. Provided. Report will be given to night RN.
--- NOTE | 2024-05-04 19:09 | NUR ---
PATIENT SITTING UP IN BED WITH TV ON WITH NO FAMILY PRESENT WITH NO ACUTE DISTRESS NOTED. PATIENT ON 1 LITER OF OXYGEN VIA NC. TRIPLE LUMEN CENTRAL LINE TO RIGHT IJ INTACT AND INFUSING 1/2 NS INTO WHITE PORT WITH NO COMPLICATIONS NOTED. NO CATH INTACT, PATENT, AND DRAINING STAN CLEAR URINE. TELEMETRY INTACT. BEDSIDE SHIFT REPORT COMPLETED WITH CASANDRA AT THIS TIME. PATIENT CONFUSED AND TALKING TO PERSON THAT IS NOT IN ROOM. PATIENT DENIES ANY NEEDS. BED IN LOW POSITION WITH WHEELS LOCKED WITH RAILS UP X3 AND CALL LIGHT WITHIN REACH. BED ALARM ON.
--- NOTE | 2024-05-04 20:54 | NUR ---
PATIENT RESTING WITH EYES CLOSED WITH AUDIBLE SNORING HEARD WITH TV ON WITH NO FAMILY PRESENT WITH NO ACUTE DISTRESS NOTED. PATIENT ON 1 LITER OF OXYGEN VIA NC. TRIPLE LUMEN CENTRAL LINE INTACT TO RIGHT IJ WITH NO COMPLICATIONS NOTED. TELEMETRY INTACT. NO CATH INTACT, PATENT, AND DRAINING STAN CLEAR URINE. 1/2 NS INFUSING INTO WHITE PORT OF TRIPLE LUMEN CENTRAL LINE WITH NO COMPLICATIONS NOTED. PATIENT EASILY AROUSED. ASSESSMENT AND MEDICATION ADMINISTRATION COMPLETED AT THIS TIME. PATIENT TOLERATED WELL. ALL NEEDS MET. BED IN LOW POSITION WITH WHEELS LOCKED WITH RAILS UP X3 AND CALL LIGHT WITHIN REACH. BED ALARM ON.
[2024-05-05] VITALS (11 sets, daily range): BP systolic 104–157; BP diastolic 69–88; PULSE 74–91; TEMP 97.4–98.8
--- NOTE | 2024-05-05 02:49 | NUR ---
PATIENT WORE BIPAP RESTING FOR APPROXIMATELY 5 HOURS TOLERATED WELL. PATIENT IS AWAKE AT THIS TIME WILL GIVE A BREAK FROM BIPAP PLACED ON 1L/NC 95%
--- NOTE | 2024-05-05 06:13 | NUR ---
BEDSCALE NOT WORKING
--- NOTE | 2024-05-05 09:04 | NUR ---
SW attended clinical rounds. SW notified by attending that Peer to Peer with insurance was denied for [facility] transfer. SW received call from Senior Analysis Specialist with patient's insurance stating that their Tank Filler has approved SNF level of care if request is done within 24 hours. SW met with patient and son to discuss SNF options, Medicare.gov list of providers in [place] area provided. Discussed SNF vs [facility] in [place]. Son wanting to discuss with patient's friend Zoya and will let SW know decision. SW informed patient and son of patient being stable for discharge per Dr. Orville [address] and attending and decision of insurance. Discharge plan: SNF vs [facility]
--- NOTE | 2024-05-05 09:34 | NUR ---
PATIENT RESTING IN BED AT THIS TIME. 1/2 NS RUNNING AT 50 ML/HR. PATEINT HAVING DISCOMFORT WITH REPOSTION. PATIENT STRUGGLES TO REPOSTION WITH ASSISTANCE. FOAM BORDER DRESSING PLACED TO BILATERAL HEELS. NO C/O SHORTNESS OF BREATH. O2 @ 1L/NC.
--- NOTE | 2024-05-05 12:11 | NUR ---
ASH received call from Brittni at [facility] with questions related to patient status and discharge needs. ASH observed MARISELAHE worker in room with patient asking questions. ASH stepped into room to update KAYLA worker that patient is being referred to SNF for discharge. ASH received call from CORDELIA Fuentes with [facility], stating that they are prepared to get authorization # from insurance and that the facility will call with any questions and prepare for admission. ASH informed Gina that another facility is also considering admission for patient and that ASH will speak with HUMA for preference. HUMA Thompson stated that preference is [facility]. ASH called [facility] and left message for Brittni to return call to inform if they are accepting patient or not. ASH Tan left message for Financial Counselor Selvin to determine if medicaid application was completed to be able to send copy to accepting facility. Discharge plan: SNF
--- NOTE | 2024-05-05 12:24 | NUR ---
Swatch Paster faxed referrals to [facility] and [facility].
--- NOTE | 2024-05-05 13:02 | NUR ---
ASH met with MARIAM Donna to review Medicare IM form. Donna in agreement with discharge plan and signed form. Original on chart, copy left in patient's room. SW awaiting follow up from [facility] regarding acceptance.
--- NOTE | 2024-05-05 13:33 | NUR ---
THIS NURSE WALKED INTO PATIENTS ROOM PATIENTS WAS ATTEMPTING TO MOVE LEGS OUT OF BED TO SELF TRANSFER. PATIENT NOTED TO HAVE CHANGE IN MENTAL STATUS AND STATED "IM TRYING TO WAKE HER UP" SHE POINTED TO THE EMPTY BENCH. THIS NURSE ATTEMPTED TO REORIENT PATINT TO SITUATION WHICH WAS UNSUCCESFULL. PATIENT APPEARD TO HAVE REMOVED NASAL CANULA. SKIN COLOR: DUSKY. REAPPLIED NASAL CANULA O2 SAT 83%. OXYGEN INCREASED TO 4L/NC AND PATIENT INSTRUCTED TO TAKE DEEP BREATHS THROUGH NOSE. RT NOTIFIED.
--- NOTE | 2024-05-05 15:30 | NUR ---
ASH received call back from Gina at [facility] accepting patient for admission. She states she has obtained auth # and facility would call ASH to discuss transfer. ASH spoke with Jillian at [facility] stating they can admit patient today. ASH informed that another facility was looking at patient as well and ASH would call Carey back. ASH attempted to speak with staff at [facility] and left two messages without call back. ASH spoke with HUMA stating that patient would be discharged to accepting facility and could be discharged today. HUMA Thompson stated "I'd rather wait for [facility] to respond". ASH discussed with Administrative team. Director Sveta Loredo called [facility] and requested to speak with Brittni. This SW spoke with Brittni who stated they are declining to admit patient. ASH notified HUMA that patient will be discharged to [facility], she voiced agreement. ASH called Jillian at [facility] to schedule transport. Jillian stated that due to the lateness of notice, patient would have to be admitted tomorrow. Transport scheduled for 1000, attending notified. DPOA notified of discharge time for tomorrow. Discharge plan: SNF
--- NOTE | 2024-05-05 15:50 | NUR ---
PATIENT WORE BIPAP FOR 1 hour while napping
[2024-05-05] MEDS ORDERED: D5W 1,000 ML IV SCH (16:00)
[2024-05-05] MEDS ORDERED: Insulin Lispro (HumaLOG) SQ SCH (17:00)
--- NOTE | 2024-05-05 19:11 | NUR ---
PATIENT SITTING UP IN BED WITH TV ON WITH NO FAMILY PRESENT WITH RT IN ROOM AT THIS TIME. PATIENT ALERT TO SELF. PATIENT ON 1 LITER OF OXYGEN VIA NC. RIGHT IJ TRIPPLE LUMEN INTACT WITH NO COMPLICATIONS NOTED. D5 INFUSING INTO BLUE PORT WITH NO COMPLICATIONS NOTED. NO CATH INTACT, PATENT, AND DRIANING STAN CLEAR URINE. TELEMETRY INTACT. BEDSIDE SHIFT REPORT COMPLETED WITH SANTOS AT THIS TIME. PATIENT DENIES ANY NEEDS. BED IN LOW POSITION WITH WHEELS LOCKED WITH RAILS UP X3 AND CALL LIGHT WITHIN REACH. BED ALARM ON.
--- NOTE | 2024-05-05 21:00 | NUR ---
PATIENT RESTING IN BED SITTING UP WITH TV ON WITH NO FAMILY PRESENT WITH NO ACUTE DISTRESS NOTED. PATEINT ON 1 LITER OF OXYGEN VIA NC. D5 INFUSING INTO BLUE LUMEN OF RIJ CENTRAL LINE WITH NO COMPLICATIONS NOTED. TELEMETRY INTACT. PATIENT TURNED TO LEFT SIDE AT THIS TIME WITH PILLOW SUPPORT. ASSESSMENT AND MEDICATION ADMINISTRATION COMPLETED AT THIS TIME. PATIENT TOELRATED WELL. NO CATH INTACT, PATENT, AND DRAINING BLOOD TINGED STAN URINE WITH RED SEDIMENT AT THIS TIME. BLOOD SUGAR CHECKED. PATIENT DENIES ANY NEEDS AT THIS TIME. BED IN LOW POSITION WITH WHEELS LOCKED WITH RAILS UP X3 AND CALL LIGHT WITHIN REACH.
[2024-05-06] VITALS: BP 132/85; PULSE 88; TEMP 98.2
--- NOTE | 2024-05-06 01:45 | NUR ---
PATIENT ONLY WORE BIPAP FOR APPROXIMATELY AN HOUR THEN REPEATLY TOOK OFF. PLACED BACK ON 2L NC AT THIS TIME.
[2024-05-06 04:30] VITALS: BP 151/92; PULSE 90; TEMP 98.1
[2024-05-06 06:55] LABS: HEMOGLOBIN 10.4 g/dl (12.5-16.0); MEAN CELL VOLUME 99 fl (80.0-100.0); MEAN CORPUSCULAR HEMOGLOBIN 31 pg (27-31); MEAN CORPUSCULAR HGB CONC 31 g/dl (33.0-37.0); MEAN PLATELET VOLUME 11.3 fl (7.4-10.4); PLATELET COUNT 143 K/mm3 (130-400); REDCELL DISTRIBUTION WIDTH-CV 15.4 % (11.5-14.5)
[2024-05-06 06:57] LABS: HEMATOCRIT 33.6 % (37.0-47.0)
--- NOTE | 2024-05-06 07:05 | NUR ---
PATIENT IS ASLEEP, RESTING IN BED. CALL LIGHT WITHIN REACH, FALL PRECAUTIONS IN PLACE. RESPIRATIONS WNL, O2 AT 2LNC, NO CATHETER PATENT AND DRAINING, STAN URINE WITH SLIGHT HEMATURIA NOTED. BED ALARM ON.
[2024-05-06 07:14] LABS: CALCIUM 8.3 mg/dL (8.4-10.2); CREATININE, serum 0.78 mg/dL (0.57-1.11); POTASSIUM 3.2 mEq/L (3.5-4.5)
[2024-05-06 07:23] VITALS: BP 159/99; PULSE 81; TEMP 98.4
[2024-05-06] MEDS ORDERED: Potassium Chloride 100 ML IV SCH (08:00)
--- NOTE | 2024-05-06 08:52 | NUR ---
PATIENT HAD MINIMAL AMOUNT OF BREAKFAST. SHE IS AWAKE AND ALERT, PLEASANTLY CONFUSED. PATIENT TO DC AT 10 TO SNF. THEREAPY TO MEET WITH THIS RN TO ASSIST WITH BED CHANGE AND PERICARE IT ELIZABETH TAKE 3-4 PEROSN ASSIST.
--- NOTE | 2024-05-06 09:06 | NUR ---
ASH attended clinical rounds. Patient stable for discharge to SNF today. ASH spoke with Joon Chino and it is agreed that patient will be transported via [facility]. Transport orders completed and signed by attending, consent signed by HUMA Thompson. Discharge orders and clinical updates faxed to Joon Chino. Transport to arrive at 1000. Discharge plan: SNF
--- NOTE | 2024-05-06 09:30 | NUR ---
PATIENT CENTRAL LINE SUCCESSFULLY REMOVED. PATIENT TOLERATED WELL. PATIENT FLAT TIME UP AT 1000.
[2024-05-06] MEDS ORDERED: K-DUR20 MEQ PO (09:46)
[2024-05-06] MEDS ORDERED: K-DUR 10 MEQ T10 MEQ PO (10:13)
--- NOTE | 2024-05-06 10:20 | NUR ---
report given to Mireya at [facility]. all questions answered. [employer] nurse informed patient low potassium levels and was unable to be compeltely replaced.
--- NOTE | 2024-05-06 10:27 | NUR ---
PATIENT NO CATHETER REMOVED PER [facility] ORDER PER MD . PATIENT TOLERATED WELL. PATIENT WAS CLEANED UP, LEFT AWAKE AND ALERT AND ORIENTED TO SELF. PATIENT LEFT IN STABLE CONDITION WITH EMS. NEREYDA FINN AWARE OF TRANSFER.
--- NOTE | 2024-05-06 13:45 | NUR ---
ASH received call from Jillian at [facility] requesting orders for bipap. ASH had respiratory complete the bipap settings on DME order form, attending signed order. Copy faxed to [facility].
== END 2024-05-06 10:28 | disposition home or self-care (01) | DRG 208 ==
LOC: ICU 14:20 → MEDICAL 05-04 17:31
PROVIDERS: Internal Medicine; Internal Medicine Pulmonary Disease; ADMIT Internal Medicine
PROC: 05HM33Z Insertion of Infusion Device into Right Internal Jugular Vein, Percutaneous Approach (ICD-10-PCS; principal; 2024-04-26)
PROC: 5A1935Z Respiratory Ventilation, Less than 24 Consecutive Hours (ICD-10-PCS; 2024-04-26)
PROC: 5A09357 Assistance with Respiratory Ventilation, Less than 24 Consecutive Hours, Continuous Positive Airway Pressure (ICD-10-PCS; 2024-04-26)
PROC: 0BH17EZ Insertion of Endotracheal Airway into Trachea, Via Natural or Artificial Opening (ICD-10-PCS; 2024-04-26)
DX: J96.02 Acute respiratory failure with hypercapnia (principal); J69.0 Pneumonitis due to inhalation of food and vomit; L03.116 Cellulitis of left lower limb; I48.20 Chronic atrial fibrillation, unspecified; E87.0 Hyperosmolality and hypernatremia; R44.3 Hallucinations, unspecified; G72.81 Critical illness myopathy; I50.9 Heart failure, unspecified; L98.499 Non-pressure chronic ulcer of skin of other sites with unspecified severity; R41.0 Disorientation, unspecified; E87.8 Other disorders of electrolyte and fluid balance, not elsewhere classified; I48.91 Unspecified atrial fibrillation; E66.01 Morbid (severe) obesity due to excess calories; I12.9 Hypertensive chronic kidney disease with stage 1 through stage 4 chronic kidney disease, or unspecified chronic kidney disease; N18.31 Chronic kidney disease, stage 3a; J96.01 Acute respiratory failure with hypoxia; Z79.01 Long term (current) use of anticoagulants; Z79.899 Other long term (current) drug therapy; Z86.79 Personal history of other diseases of the circulatory system; Z86.59 Personal history of other mental and behavioral disorders
CPT/HCPCS: C1751; J1100; J1815; J1940; J2060; J2543; J2704; J2919; J3010; J3475; J3480; J7070; J7120